=== PATIENT | female | born 1995 | race African-American/Black ===

== ENCOUNTER → 2024-11-03 12:40 | Outpatient (CLI) | payer OTHER, SELFPAY ==
[2024-11-03 14:06] LABS: Free T3, Triiodothyronine Free 4.11 pg/mL (2.77-5.27)
[2024-11-03 14:20] LABS: Thyroid Stimulating Hormone 0.372 uIU/mL (0.47-4.68)
== END ==
PROVIDERS: Referring Provider Chiropractor; Visit Provider Chiropractor
DX: E07.9 Disorder of thyroid, unspecified (principal)
CPT/HCPCS: 36415; 84442; 84443; 84481